=== PATIENT | female | born 1960 | race Caucasian/White ===

== ENCOUNTER 2021-09-29 17:22 | Emergency (ER) | payer OTHER ==
[~2021-09-29] VITALS: Ht 149.9 cm; Wt 68.0 kg
[2021-09-29 18:01] VITALS: BP 150/86
--- NOTE | 2021-09-29 19:00 | NUR ---
COVID TOMEKA SWAB DONE.
[2021-09-29] MEDS ORDERED: NACL 0.9% 1,000 ML IV ONE (19:25)
[2021-09-29 19:26] LABS: BASOPHILS # (AUTO) 0.1 K/uL (0.00-0.22); BASOPHILS % (AUTO) 2.9 % (0.0-2.0); EOSINOPHILS % (AUTO) 0.3 % (0.0-4.0); HEMATOCRIT 36.8 % (36-48); HEMOGLOBIN 12.5 g/dL (12.0-16.0); LYMPHOCYTES # (AUTO) 0.6 K/uL (2.5-16.5); LYMPHOCYTES % (AUTO) 11.8 % (20.5-51.1); MEAN CORPUSCULAR HEMOGLOBIN 30 pg (27-31); MEAN CORPUSCULAR HGB CONC 34 g/dL (33-37); MONOCYTES # (AUTO) 0.5 K/uL (0.8-1.0); MONOCYTES % (AUTO) 9.6 % (1.7-9.3); NEUTROPHILS # (AUTO) 3.6 K/uL (1.8-7.7); NEUTROPHILS % (AUTO) 75.4 % (42.2-75.2); PLATELET COUNT (AUTO) 169 K/uL (140-450); RED BLOOD CELL COUNT(AUTO) 4.18 MIL/uL (4.20-5.40); RED CELL DISTRIBUTION WIDTH 13.4 % (11.6-13.7); WHITE BLOOD COUNT (AUTO) 4.8 K/uL (4.8-10.8)
[2021-09-29 19:54] LABS: ALBUMIN 3.5 g/dL (3.4-5.0); ANION GAP 12.9 (8-16); CARBON DIOXIDE 24.8 mmol/L (21-32); CREATININE 0.7 mg/dL (0.6-1.3); POTASSIUM 3.7 mmol/L (3.5-5.1); TOTAL BILIRUBIN 0.4 mg/dL (0.0-1.0)
--- NOTE | 2021-09-29 20:00 | NUR ---
medicated as per [facility] order, tolerated well..
[2021-09-29] MEDS ORDERED: cefTRIAXone 1,000 MG VIAL ONE (20:37)
[2021-09-29 20:41] LABS: APPEARANCE,URINE CLEAR (CLEAR); BILIRUBIN,URINE NEGATIVE (NEGATIVE); BLOOD, URINE NEGATIVE (NEGATIVE); LEUKOCYTE ESTERASE ,URINE TRACE (NEGATIVE); NITRITE, URINE POSITIVE (NEGATIVE); UGLUCOSE NEGATIVE (NEGATIVE)
[2021-09-29 20:42] LABS: COLOR,URINE AMBER (YELLOW)
[2021-09-29 21:04] LABS: RBC,URINE NONE SEEN /HPF (0-5); WBC,URINE 0-5 /HPF (0-5)
[2021-09-29] MEDS ORDERED: ONDANSETRON 4 MG/2 ML VIAL IVP ONE (21:30)
[2021-09-29] MEDS ORDERED: MORPHINE SULFATE 2 MG/ML SYR IVP ONE (21:30)
[2021-09-29] MEDS ORDERED: ONDA4TAB PO (21:56)
[2021-09-29] MEDS ORDERED: CEPH250C16 PO (21:56)
[2021-09-29] MEDS ORDERED: ACET-10509 PO (21:56)
[2021-09-30 00:10] VITALS: BP 129/86
--- NOTE | 2021-09-30 00:10 | NUR ---
Patient discharged with v/s stable. Written and verbal after care instructions given and explained. Patient alert, oriented and verbalized understanding of instructions. Ambulatory with steady gait. All questions addressed prior to discharge. ID band removed. Patient advised to follow up with PMD. Rx of tylenol, keflex, zofran given. Patient educated on indication of medication including possible reaction and side effects. Opportunity to ask questions provided and answered.
== END 2021-09-30 00:10 | disposition home or self-care (01) ==
LOC: MED 17:22
DX: N39.0 Urinary tract infection, site not specified (principal); Z20.822 Contact with and (suspected) exposure to COVID-19; R53.1 Weakness; R42 Dizziness and giddiness
CPT/HCPCS: 36415; 71045; 74176; 80053; 81001; 83605; 84484; 85025; 87040; 87086; 87426; 87804; 93005; 96365; 96375; 99285; J0696; J2405; J7030; J2270

== ENCOUNTER 2021-10-25 16:48 | Emergency (ER) | payer OTHER ==
[~2021-10-25] VITALS: Ht 149.9 cm; Wt 61.7 kg
[~2021-10-25 16:48] MED LIST: ACET-10509 PO; CEPH250C16 PO; ONDA4TAB PO
[2021-10-25 16:54] VITALS: BP 143/89
[2021-10-25] MEDS ORDERED: LIDO28CR2 TP (18:03)
[2021-10-25] MEDS ORDERED: MIRABULK PO (18:03)
[2021-10-25] MEDS ORDERED: DOCU-299 PO (18:03)
[2021-10-25 18:17] VITALS: BP 143/89
--- NOTE | 2021-10-25 18:17 | NUR ---
NO NURSING INTERVENTIONS IMPLEMENTED. Patient discharged with v/s stable. Written and verbal after care instructions given and explained. Patient alert, oriented and verbalized understanding of instructions. Ambulatory with steady gait. All questions addressed prior to discharge. ID band removed. Patient advised to follow up with PMD. Rx of COLACE, LIDO CREAM, MIRALAX given. Patient educated on indication of medication including possible reaction and side effects. Opportunity to ask questions provided and answered.
== END 2021-10-25 18:17 | disposition home or self-care (01) ==
LOC: MED 16:48
DX: K64.4 Residual hemorrhoidal skin tags (principal)
CPT/HCPCS: 99282

== ENCOUNTER 2023-12-30 17:53 | Emergency (ER) | payer BC, OTHER ==
[~2023-12-30] VITALS: Ht 149.9 cm; Wt 49.0 kg
[~2023-12-30 17:53] MED LIST changes: +DOCU-299 PO; +LIDO28CR2 TP; +MIRABULK PO
[2023-12-30 18:08] VITALS: BP 106/61; PULSE 91; RESP 18; TEMP 97.6; O2SAT 99
[2023-12-30] MEDS ORDERED: DOCU-299 PO (19:10)
[2023-12-30] MEDS ORDERED: ACET-503 PO (19:10)
[2023-12-30] MEDS: MORPHINE SULFATE 4 MG/ML SYR IM ONE (19:36)
[2023-12-30 20:03] VITALS: BP 113/58; PULSE 81; RESP 14; TEMP 97.1; O2SAT 96
== END 2023-12-30 20:00 | disposition home or self-care (01) ==
LOC: MED 17:53
DX: K62.89 Other specified diseases of anus and rectum (principal); K62.5 Hemorrhage of anus and rectum; Z98.890 Other specified postprocedural states; Z79.899 Other long term (current) drug therapy
CPT/HCPCS: 96372; 99283; J2270

== ENCOUNTER 2024-01-05 06:08 | Inpatient (IN) | payer BC ==
[2024-01-05] VITALS (8 sets, daily range): BP systolic 99–126; BP diastolic 44–73; PULSE 68–90; RESP 16–22; TEMP 96.8–98; O2SAT 96–100
[~2024-01-05] VITALS: Ht 149.9 cm; Wt 46.7 kg
[~2024-01-05 06:08] MED LIST changes: +ACET-503 PO
[2024-01-05] MEDS ORDERED: MORPHINE SULFATE 4 MG/ML SYR IVP ONE (06:35)
[2024-01-05] MEDS ORDERED: KETOROLAC 30 MG/ML VIAL ONE (06:55)
[2024-01-05] MEDS: ONDANSETRON 4 MG ODT PO ONE (06:59)
[2024-01-05] MEDS: KETOROLAC 30 MG/ML VIAL IVP ONE (07:01)
[2024-01-05] MEDS: POLYETHYLENE GLYCOL 17 GM/PKT PO ONE (07:01)
[2024-01-05 07:10] LABS: BASOPHILS % (AUTO) 0.7 % (0.0-2.0); EOSINOPHILS # (AUTO) 0.4 K/uL (0-0.4); EOSINOPHILS % (AUTO) 5.2 % (0.0-4.0); HEMATOCRIT 28.6 % (36-48); HEMOGLOBIN 9.8 g/dL (12.0-16.0); LYMPHOCYTES # (AUTO) 1.8 K/uL (2.5-16.5); MEAN CORPUSCULAR HEMOGLOBIN 32 pg (27-31); MEAN CORPUSCULAR HGB CONC 34 g/dL (33-37); MEAN CORPUSCULAR VOLUME 94.7 fL (80-94); MONOCYTES # (AUTO) 0.6 K/uL (0.8-1.0); MONOCYTES % (AUTO) 8.3 % (1.7-9.3); NEUTROPHILS # (AUTO) 4.2 K/uL (1.8-7.7); NEUTROPHILS % (AUTO) 59.8 % (42.2-75.2); PLATELET COUNT (AUTO) 242 K/uL (140-450); RED BLOOD CELL COUNT(AUTO) 3.02 MIL/uL (4.20-5.40); RED CELL DISTRIBUTION WIDTH 14.8 % (11.6-13.7); WHITE BLOOD COUNT (AUTO) 7.1 K/uL (4.8-10.8)
[2024-01-05 07:25] LABS: INR 0.94 (0.8-1.2); PARTIAL THROMBOPLASTIN TIME 24.5 secs (22-35.6); PROTHROMBIN TIME 9.9 secs (10.8-13.4)
[2024-01-05 07:42] LABS: ALBUMIN 3.5 g/dL (3.4-5.0); ANION GAP 14.2 (8-16); CALCIUM 9.1 mg/dL (8.5-10.1); CARBON DIOXIDE 24.3 mmol/L (21-32); CREATININE 0.6 mg/dL (0.6-1.3); POTASSIUM 3.5 mmol/L (3.5-5.1); TOTAL BILIRUBIN 0.4 mg/dL (0.0-1.0)
[2024-01-05 07:47] LABS: APPEARANCE,URINE CLEAR (CLEAR); BILIRUBIN,URINE NEGATIVE (NEGATIVE); BLOOD, URINE TRACE-I (NEGATIVE); COLOR,URINE YELLOW (YELLOW); LEUKOCYTE ESTERASE ,URINE TRACE (NEGATIVE); NITRITE, URINE NEGATIVE (NEGATIVE); PH,URINE 8.5 (5.0-9.0); PROTEIN,URINE NEGATIVE (NEGATIVE); UGLUCOSE NEGATIVE (NEGATIVE); UROBILINOGEN,URINE 0.2 EU/dL (0.2 - 1)
[2024-01-05 08:26] LABS: BACTERIA,URINE 1+ /HPF (None Seen); MUCUS,URINE 1+ /LPF (None Seen); SQUAMOUS EPITHELIAL CELL,UR 0-3 (FEW) /LPF (0-3 (FEW)); WBC,URINE 0-5 /HPF (0-5)
[2024-01-05] MEDS ORDERED: HYDROcodone/APAP 5/325 MG 1 TAB TAB PO PRN (11:20)
[2024-01-05] MEDS ORDERED: ONDANSETRON 4 MG/2 ML VIAL IVP PRN (11:20)
[2024-01-05] MEDS ORDERED: MORPHINE SULFATE 2 MG/ML SYR IVP PRN (11:20)
[2024-01-05] MEDS ORDERED: ACETAMINOPHEN 325 MG TAB PO PRN (11:20)
[2024-01-05] MEDS ORDERED: POTASSIUM CHL 20 MEQ/NACL 0.9% 1,000 ML IV ONE (11:25)
[2024-01-05] MEDS: MINERAL OIL 135 ML ENEM RC ONE (11:25)
[2024-01-05] MEDS: NACL 0.9% 1,000 ML IV ONE ×2 (11:40→12:32)
[2024-01-05 12:39] LABS: HEMATOCRIT 25.8 % (36-48); HEMOGLOBIN 8.7 g/dL (12.0-16.0)
[2024-01-05] MEDS: POTASSIUM CHL 20 MEQ/NACL 0.9% 1,000 ML IV SCH (13:33)
[2024-01-05] MEDS: FERROUS GLUCONATE 324 MG TAB PO SCH (16:40)
[2024-01-05] MEDS: SODIUM FERRIC GLUCONATE 125 MG in NACL 0.9% 100 ML IV SCH (18:59)
[2024-01-05 20:10] LABS: HEMATOCRIT 23.6 % (36-48); HEMOGLOBIN 7.9 g/dL (12.0-16.0)
[2024-01-05] MEDS: LACTULOSE 20 GM/30 ML UDC PO SCH (21:00)
[2024-01-05] MEDS: PIPERACILLIN/TAZOBACTAM 3.375 GM in DEXTROSE 5% 50 ML IV SCH (21:15)
[2024-01-06] VITALS (8 sets, daily range): BP systolic 92–106; BP diastolic 42–57; PULSE 66–99; RESP 16–18; TEMP 96.8–98.4; O2SAT 98–100
[2024-01-06 01:36] LABS: HEMATOCRIT 21.5 % (36-48); HEMOGLOBIN 7.2 g/dL (12.0-16.0)
[2024-01-06] MEDS: PIPERACILLIN/TAZOBACTAM 3.375 GM VIAL IV ONE (04:23)
[2024-01-06 07:06] LABS: BASOPHILS % (AUTO) 0.7 % (0.0-2.0); EOSINOPHILS # (AUTO) 0.3 K/uL (0-0.4); EOSINOPHILS % (AUTO) 4.5 % (0.0-4.0); HEMATOCRIT 20.6 % (36-48); HEMOGLOBIN 7.1 g/dL (12.0-16.0); LYMPHOCYTES # (AUTO) 1.5 K/uL (2.5-16.5); LYMPHOCYTES % (AUTO) 26.2 % (20.5-51.1); MEAN CORPUSCULAR HEMOGLOBIN 33 pg (27-31); MEAN CORPUSCULAR HGB CONC 34 g/dL (33-37); MEAN CORPUSCULAR VOLUME 95.2 fL (80-94); MONOCYTES # (AUTO) 0.5 K/uL (0.8-1.0); MONOCYTES % (AUTO) 8.6 % (1.7-9.3); NEUTROPHILS # (AUTO) 3.5 K/uL (1.8-7.7); PLATELET COUNT (AUTO) 186 K/uL (140-450); RED BLOOD CELL COUNT(AUTO) 2.16 MIL/uL (4.20-5.40); RED CELL DISTRIBUTION WIDTH 14.2 % (11.6-13.7); WHITE BLOOD COUNT (AUTO) 5.8 K/uL (4.8-10.8)
[2024-01-06 07:15] LABS: MAGNESIUM 2.2 mg/dL (1.8-2.4); PHOSPHORUS 4.4 mg/dL (2.5-4.9)
[2024-01-06 12:13] LABS: HEMATOCRIT 20.7 % (36-48)
[2024-01-06] MEDS ORDERED: FERR324T11 PO (14:28)
[2024-01-06] MEDS ORDERED: METR-520 PO (14:28)
[2024-01-06] MEDS ORDERED: LEVO-481 PO (14:28)
[2024-01-06 21:49] LABS: HEMATOCRIT 29.6 % (36-48); HEMOGLOBIN 10.3 g/dL (12.0-16.0)
[2024-01-07] VITALS: BP 114/64; PULSE 65; RESP 19; TEMP 98.3; O2SAT 97
[2024-01-07 04:00] VITALS: BP 113/60; PULSE 63; RESP 19; TEMP 97.6; O2SAT 98
[2024-01-07 06:26] LABS: BASOPHILS % (AUTO) 0.4 % (0.0-2.0); EOSINOPHILS # (AUTO) 0.3 K/uL (0-0.4); EOSINOPHILS % (AUTO) 5.4 % (0.0-4.0); HEMATOCRIT 26.9 % (36-48); HEMOGLOBIN 9.2 g/dL (12.0-16.0); LYMPHOCYTES % (AUTO) 30.9 % (20.5-51.1); MEAN CORPUSCULAR HEMOGLOBIN 30 pg (27-31); MEAN CORPUSCULAR HGB CONC 34 g/dL (33-37); MEAN CORPUSCULAR VOLUME 88.1 fL (80-94); MONOCYTES # (AUTO) 0.6 K/uL (0.8-1.0); MONOCYTES % (AUTO) 8.9 % (1.7-9.3); NEUTROPHILS # (AUTO) 3.5 K/uL (1.8-7.7); NEUTROPHILS % (AUTO) 54.4 % (42.2-75.2); PLATELET COUNT (AUTO) 164 K/uL (140-450); RED BLOOD CELL COUNT(AUTO) 3.05 MIL/uL (4.20-5.40); RED CELL DISTRIBUTION WIDTH 20.9 % (11.6-13.7); WHITE BLOOD COUNT (AUTO) 6.5 K/uL (4.8-10.8)
[2024-01-07 08:00] VITALS: PULSE 68
[2024-01-07] MEDS: LACTULOSE 20 GM/30 ML UDC PO SCH (09:40)
[2024-01-07] MEDS ORDERED: MIRABULK PO (14:38)
== END 2024-01-07 15:25 | disposition home or self-care (01) | DRG 376 ==
LOC: MED 06:08 → MTU 11:23
PROVIDERS: ADMIT Internal Medicine; ATTEND Internal Medicine
PROC: 30233N1 Transfusion of Nonautologous Red Blood Cells into Peripheral Vein, Percutaneous Approach (ICD-10-PCS; principal; 2024-01-05)
DX: C78.5 Secondary malignant neoplasm of large intestine and rectum (principal); D63.0 Anemia in neoplastic disease; K59.00 Constipation, unspecified; K52.89 Other specified noninfective gastroenteritis and colitis; Z85.038 Personal history of other malignant neoplasm of large intestine; Z91.199 Patient's noncompliance with other medical treatment and regimen due to unspecified reason; Z79.2 Long term (current) use of antibiotics; Z79.899 Other long term (current) drug therapy; Z98.891 History of uterine scar from previous surgery; Z98.42 Cataract extraction status, left eye
CPT/HCPCS: 36415; 80053; 81001; 83540; 83735; 84100; 85018; 85025; 85610; 85730; 86886; 86900; 86901; 86920; 87081; J1885; J2270; J2543; J2916; J7030; J7060; P9016; Q0162; Q9967